=== PATIENT | male | born 1995 | race Caucasian/White ===

== ENCOUNTER 2024-05-11 08:53 | Outpatient (CLI) | payer BC | END 2024-05-11 08:54 | disposition home or self-care (01) | LOC: CSHDTY/OP 08:53 | PROVIDERS: ATTEND Specialist | DX: E66.01 Morbid (severe) obesity due to excess calories (principal); L98.8 Other specified disorders of the skin and subcutaneous tissue | CPT/HCPCS: 97802 ==

== ENCOUNTER 2024-06-15 12:28 | Outpatient (CLI) | payer BC | END 2024-06-15 12:29 | disposition home or self-care (01) | LOC: CSHDTY/OP 12:28 | PROVIDERS: ATTEND Specialist | DX: E66.01 Morbid (severe) obesity due to excess calories (principal); L98.8 Other specified disorders of the skin and subcutaneous tissue | CPT/HCPCS: 97802 ==

== ENCOUNTER 2025-01-11 14:23 | Outpatient (CLI) | payer BC | END 2025-01-11 14:24 | disposition home or self-care (01) | LOC: CSHDTY/OP 14:23 | PROVIDERS: ATTEND Specialist | DX: E66.01 Morbid (severe) obesity due to excess calories (principal); L98.8 Other specified disorders of the skin and subcutaneous tissue | CPT/HCPCS: 97802 ==